=== PATIENT | male | born 1950 | race Caucasian/White ===

== ENCOUNTER 2018-09-16 06:31 | Inpatient (IN) ==
[2018-09-10 16:08] LABS: Basophils % 0.4 % (0.0-0.8); Eosinophils # 0.4 10*3/uL (0.0-0.87); Eosinophils % 3.6 % (0.00-10.9); Hematocrit 39.7 VOL% (42.0-52.0); Hemoglobin 12.3 GM/DL (14.0-18.0); Immature Granulocytes % 0.3 %; Immature Granulocytes Absolute 0.03 #; Lymphocytes # 3.1 10*3/uL (1.4-4.0); Lymphocytes % 30.1 % (21.2-54.2); Mean Corpuscular Hemoglobin 31 PG (27-34); Mean Corpuscular Volume 99.3 FL (87-102); Mean Platelet Volume 10.1 FL (9.6-12.0); Monocytes # 0.8 10*3/uL (0.11-0.8); Monocytes % 7.7 % (1.7-12.7); Neutrophils # 5.9 10*3/uL (1.4-7.4); Neutrophils % 57.9 % (38.7-73.9); Platelet Count 190 T/CUMM (130-400); Red Cell Distribution Width 12.6 % (9.3-17.3); White Blood Count 10.2 T/CUMM (4-12)
[2018-09-10 16:24] LABS: Alanine Aminotransferase 29 U/L (16-61); Albumin 3.9 G/DL (3.4-5.0); Alkaline Phosphatase 95 U/L (45-117); Aspartate Amino Transferase 19 U/L (0-37); Bilirubin,Total < 0.39 MG/DL (0.2-1.0); Blood Urea Nitrogen 24 MG/DL (7-18); Calcium 9.5 MG/DL (8.5-10.1); Glucose 121 MG/DL (74-106); Osmolality,Calculated 285.3 MOS/KG (273-304); Potassium 4.2 MMOL/L (3.5-5.1); Sodium 141 MMOL/L (136-145)
[~2018-09-16 06:31] MED LIST: ceFAZolin 1,000 MG VIAL ONE; ceFAZolin 1,000 MG in SYRINGE 1 EACH IV ONE
[2018-09-16] MEDS ORDERED: DIAZEPAM 5 MG TABLET PO ONE (07:13)
[2018-09-16] MEDS ORDERED: FAMOTIDINE 20 MG TABLET PO ONE (07:13)
[2018-09-16] MEDS: LACTATED RINGERS 1,000 ML IV SCH ×3 (07:16→20:32)
[2018-09-16] MEDS ORDERED: DIAZEPAM 5 MG TABLET ONE (07:19)
[2018-09-16] MEDS ORDERED: FAMOTIDINE 20 MG TABLET ONE (07:19)
[2018-09-16] MEDS ORDERED: HEPARIN 5,000 UNIT/1 ML VIAL ONE (07:34)
[2018-09-16] MEDS ORDERED: ONDANSETRON 4 MG/2 ML VIAL IV PRN ×2 (11:01→11:27)
[2018-09-16] MEDS ORDERED: fentaNYL 100 MCG/2 ML VIAL ONE (11:22)
[2018-09-16] MEDS ORDERED: PHENYLEPHRINE DRIP 20 MG/250 ML PREMIX IV ONE (11:22)
[2018-09-16] MEDS ORDERED: PROPOFOL 200 MG/20 ML VIAL IV ONE (11:22)
[2018-09-16] MEDS ORDERED: SEVOFLURANE 1 UNIT/15 MINUTE INH ONE (11:22)
[2018-09-16] MEDS ORDERED: HEPARIN 10,000 UNIT/10 ML VIAL ONE (11:22)
[2018-09-16] MEDS ORDERED: ETOMIDATE 40 MG/20 ML VIAL IV ONE (11:23)
[2018-09-16] MEDS ORDERED: PHENYLEPHRINE 1 MG/10 ML SYRINGE IV ONE (11:23)
[2018-09-16] MEDS ORDERED: GLYCOPYRROLATE 0.4 MG/2 ML VIAL ONE (11:23)
[2018-09-16] MEDS ORDERED: ePHEDrine 50 MG/ML AMP ONE (11:23)
[2018-09-16] MEDS ORDERED: ONDANSETRON 4 MG/2 ML VIAL ONE (11:23)
[2018-09-16] MEDS: HYDROmorphone 2 MG/1 ML VIAL IV PRN ×4 (11:28→20:46)
[2018-09-16] MEDS: hydrALAZINE 10 MG TABLET PO SCH ×2 (15:00→20:46)
[2018-09-16] MEDS ORDERED: GLUCAGON 1 MG VIAL IM PRN (16:03)
[2018-09-16] MEDS ORDERED: DEXTROSE 50% 25 GM/50 ML SYRINGE IV PRN (16:03)
[2018-09-16] MEDS: INSULIN LISPRO 100 UNIT/ML SUBCUT SCH ×2 (16:31→20:54)
[2018-09-16] MEDS: metFORMIN 500 MG TABLET PO SCH (17:15)
[2018-09-16] MEDS: DOCUSATE SODIUM 100 MG CAPSULE PO SCH (20:46)
[2018-09-16] MEDS: INSULIN GLARGINE 100 UNIT/ML SUBCUT SCH (20:54)
[2018-09-17] MEDS: HYDROmorphone 2 MG/1 ML VIAL IV PRN ×3 (04:08→23:46)
[2018-09-17] MEDS: LACTATED RINGERS 1,000 ML IV SCH ×2 (04:20→08:06)
[2018-09-17 04:42] LABS: Basophils % 0.3 % (0.0-0.8); Eosinophils # 0.2 10*3/uL (0.0-0.87); Eosinophils % 1.8 % (0.00-10.9); Hemoglobin 9.8 GM/DL (14.0-18.0); Immature Granulocytes % 0.3 %; Immature Granulocytes Absolute 0.03 #; Lymphocytes # 2.2 10*3/uL (1.4-4.0); Lymphocytes % 22.8 % (21.2-54.2); Mean Corpuscular HGB Conc 30.6 GM/DL (32-36); Mean Corpuscular Hemoglobin 31 PG (27-34); Mean Corpuscular Volume 102.2 FL (87-102); Mean Platelet Volume 10.1 FL (9.6-12.0); Monocytes % 10.4 % (1.7-12.7); Neutrophils # 6.2 10*3/uL (1.4-7.4); Neutrophils % 64.4 % (38.7-73.9); Platelet Count 121 T/CUMM (130-400); Red Blood Count 3.13 MC/CUMM (3.8-5.5); Red Cell Distribution Width 12.9 % (9.3-17.3); White Blood Count 9.7 T/CUMM (4-12)
[2018-09-17 05:14] LABS: Calcium 8.6 MG/DL (8.5-10.1); Osmolality,Calculated 283.5 MOS/KG (273-304); Potassium 3.9 MMOL/L (3.5-5.1)
[2018-09-17] MEDS: INSULIN LISPRO 100 UNIT/ML SUBCUT SCH ×4 (08:07→20:39)
[2018-09-17] MEDS ORDERED: DIABETIC MISC SCH (09:00)
[2018-09-17] MEDS: hydrALAZINE 10 MG TABLET PO SCH ×3 (09:32→21:09)
[2018-09-17] MEDS: LISINOPRIL 10 MG TABLET PO SCH (09:32)
[2018-09-17] MEDS: amLODIPine 5 MG TABLET PO SCH (09:32)
[2018-09-17] MEDS: METOPROLOL SUCCINATE XL 25 MG TABLET PO SCH (09:32)
[2018-09-17] MEDS: ASPIRIN CHEW 81 MG TABLET PO SCH (09:32)
[2018-09-17] MEDS: CLOPIDOGREL 75 MG TABLET PO SCH (09:32)
[2018-09-17] MEDS: ROSUVASTATIN 20 MG TABLET PO SCH (09:32)
[2018-09-17] MEDS: PANTOPRAZOLE 40 MG TABLET PO SCH (09:32)
[2018-09-17] MEDS: SERTRALINE 50 MG TABLET PO SCH (09:33)
[2018-09-17] MEDS: metFORMIN 500 MG TABLET PO SCH ×2 (09:33→17:12)
[2018-09-17] MEDS: DOCUSATE SODIUM 100 MG CAPSULE PO SCH ×2 (09:33→21:10)
[2018-09-17] MEDS ORDERED: MAGNESIUM HYDROXIDE SUSP 30 ML UDCUP PO PRN (15:02)
[2018-09-17 17:27] LABS: Apearance,Urine CLEAR (Clear); Bacteria,Urine Occasional /HPF (Few); Bilirubin,Urine Negative (Negative); Blood, Urine Negative (Negative); Glucose,Urine (UA) Negative (Negative); Ketones,Urine Negative (Negative); Mucus,Urine Occasional /LPF (Occasional); Nitrite,Urine Negative (Negative); Protein,Urine Negative; RBC,Urine <1 /HPF (0-4); Urine Color Yellow (Yellow); Urine Specific Gravity 1.013 (1.001-1.035); WBC,Urine 2 /HPF (0-6)
[2018-09-17] MEDS: INSULIN GLARGINE 100 UNIT/ML SUBCUT SCH (21:10)
[2018-09-18] MEDS: INSULIN LISPRO 100 UNIT/ML SUBCUT SCH ×2 (07:35→11:29)
[2018-09-18] MEDS: METOPROLOL SUCCINATE XL 25 MG TABLET PO SCH (08:35)
[2018-09-18] MEDS: metFORMIN 500 MG TABLET PO SCH (08:35)
[2018-09-18] MEDS: ROSUVASTATIN 20 MG TABLET PO SCH (08:35)
[2018-09-18] MEDS: ASPIRIN CHEW 81 MG TABLET PO SCH (08:35)
[2018-09-18] MEDS: DOCUSATE SODIUM 100 MG CAPSULE PO SCH (08:35)
[2018-09-18] MEDS: hydrALAZINE 10 MG TABLET PO SCH (08:36)
[2018-09-18] MEDS: amLODIPine 5 MG TABLET PO SCH (08:36)
[2018-09-18] MEDS: LISINOPRIL 10 MG TABLET PO SCH (08:36)
[2018-09-18] MEDS: SERTRALINE 50 MG TABLET PO SCH (08:36)
[2018-09-18] MEDS: PANTOPRAZOLE 40 MG TABLET PO SCH (08:37)
[2018-09-18] MEDS: CLOPIDOGREL 75 MG TABLET PO SCH (08:37)
[2018-09-18 11:38] VITALS: BP 130/65
== END 2018-09-18 11:55 | disposition home or self-care (01) | DRG 254 ==
LOC: N.SDSINP 06:31 → N.3E 12:09
PROVIDERS: ADMIT Surgery; ATTEND Surgery